=== PATIENT | male | born 1955 | race Caucasian/White ===

== ENCOUNTER 2020-10-05 08:20 | Day surgery (SDC) | payer BC ==
[~2020-10-05 08:20] MED LIST: Lactated Ringers 1,000 ML IV SCH; Lidocaine 2% 5 ML SDV ONE; Midazolam 1 MG/ML 2 ML SDV ONE; Propofol 200 MG/20 ML SDV ONE; fentaNYL 100 MCG/2 ML SDV ONE
--- NOTE | 2020-10-05 08:47 | PCM.PREANE ---
Preanesthetic Assessment - Anesthesia/Transfusion/Family Hx Anesthesia History: Prior Anesthesia Without Reaction Family History of Anesthesia Reaction: No Transfusion History: No Prior Transfusion(s) Intubation History: Unknown - Review of Systems General: No Symptoms Pulmonary: No Symptoms Cardiovascular: No Symptoms Gastrointestinal: Other (h/o multiple polyps) Neurological: No Symptoms Other: Reports: None - Physical Assessment Vital Signs: Last Vital Signs Temp 36.3 C 10/05/20 08:26 Pulse 64 10/05/20 08:26 Resp 16 10/05/20 08:26 BP 138/94 H 10/05/20 08:26 Pulse Ox 96 10/05/20 08:26 Height: 6 ft Weight: 105.687 kg ASA Class: 3 Mental Status: Alert & Oriented x3 Airway Class: Mallampati = 3 Dentition: Reports: Partial (upper (removable)) Thyro-Mental Finger Breadths: 3 Mouth Opening Finger Breadths: 1 (tiny mouth) ROM/Head Extension: Limited/Partial Lungs: Clear to Auscultation, Normal Respiratory Effort Cardiovascular: Regular Rate, Regular Rhythm - Lab Values: Laboratory Last Values SARS-CoV-2 RNA (PADDY) NEGATIVE (NEGATIVE) 10/05/20 07:20 - Allergies Allergies/Adverse Reactions: Allergies Allergy/AdvReac Type Severity Reaction Status Date / Time animal dander Allergy swelling, Verified 10/01/20 11:52 SOB - Blood Blood Available: No - Anesthesia Plan Pre-Op Medication Ordered: None - Acknowledgements Anesthesia Type Planned: MAC Pt an Appropriate Candidate for the Planned Anesthesia: Yes Alternatives and Risks of Anesthesia Discussed w Pt/Guardian: Yes Pt/Guardian Understands and Agrees with Anesthesia Plan: Yes PreAnesthesia Questionnaire HEENT History: Reports: Hard of Hearing, Other (See Below) Other HEENT History: uses reading glasses, has bilateral hearing aides, has upper removable partial denture Cardiovascular History: Reports: High Cholesterol, Hypertension Respiratory History: Reports: Sleep Apnea Other Respiratory History: uses CPAP every night Gastrointestinal History: Reports: Colon Polyp (14 polyps during colonoscopy in ), Diverticulosis, Other (See Below) Other Gastrointestinal History: occasional heartburn Genitourinary History: Reports: BPH Neurological History: Reports: Neuropathy, Peripheral Endocrine/Metabolic History: Reports: Obesity/BMI 30+ (BMI 31.6) Dermatologic History: Reports: Other (See Below) Other Dermatologic History: dry spots on hands - Past Surgical History Head Surgeries/Procedures: Reports: None HEENT Surgical History: Reports: Oral Surgery Other HEENT Surgeries/Procedures: has 1 dental implant GI Surgical History: Reports: Colonoscopy, Hernia, Inguinal Male Surgical History: Reports: Vasectomy - SUBSTANCE USE Tobacco Use Status *Q: Former Tobacco User (quit in -) Tobacco Use Within Last Twelve Months: No Recreational Drug Use History: No - HOME MEDS Home Medications: Home Meds A/C/E/Zinc Ox/Cupric Ox/Lutein [[employer] Tablet] 1 tab PO DAILY 07/29/18 [History] Cyanocobalamin (Vitamin B12) [Vitamin B12] 500 mcg PO DAILY 07/29/18 [History] Metoprolol Succinate 50 mg PO BID 07/29/18 [History] atorvaSTATin Calcium [Atorvastatin Calcium] 40 mg PO DAILY 07/29/18 [History] - CURRENT (IN HOUSE) MEDS Current Meds: Current Medications Lactated Ringer's (Ringers, Lactated) 1,000 mls @ 125 mls/hr IV ASDIRECTED FERNANDEZ Discontinued Medications Fentanyl (Sublimaze) Confirm Administered Dose 100 mcg .ROUTE .STK-MED ONE Stop: 10/05/20 07:21 Lidocaine (Xylocaine-Mpf 2%) Confirm Administered Dose 5 ml .ROUTE .STK-MED ONE Stop: 10/05/20 07:32 Midazolam HCl (Versed 1 Mg/Ml) Confirm Administered Dose 2 mg .ROUTE .STK-MED ONE Stop: 10/05/20 07:21 Propofol (Diprivan 20 Ml) Confirm Administered Dose 400 mg .ROUTE .STK-MED ONE Stop: 10/05/20 07:21
[2020-10-05] MEDS ORDERED: Propofol 200 MG/20 ML SDV ONE ×2 (10:07→10:17)
--- NOTE | 2020-10-05 10:25 | PCM.OPNOTE ---
- General Post-Op/Procedure Note Date of Surgery/Procedure: 10/05/20 Operative Procedure(s): Colonoscopy with multiple cold polypectomies from the ascending colon, transverse colon, splenic flexure, descending colon, sigmoid colon and rectum. Pre Op Diagnosis: Personal history of colon polyps. Sigmoid diverticulosis. Post-Op Diagnosis: Ascending colon, transverse colon, splenic flexure, descending colon, sigmoid and rectal polyps. Mild sigmoid diverticulosis. Anesthesia Technique: MAC (ASA III) Primary Surgeon: Dontrell Holland Unitizer: Armando Robins Condition: Good Free Text/Narrative:: DICTATION [id number] CPT CODE 21501
[2020-10-05] MEDS ORDERED: Lactated Ringers 1,000 ML IV SCH (10:30)
--- NOTE | 2020-10-05 10:57 | PCM.POSTAN ---
POST ANESTHESIA ASSESSMENT - MENTAL STATUS Mental Status: Alert, Oriented - VITAL SIGNS Vital Signs: Last Vital Signs Temp 36.5 C 10/05/20 10:46 Pulse 54 L 10/05/20 10:46 Resp 16 10/05/20 10:46 BP 122/59 L 10/05/20 10:46 Pulse Ox 96 10/05/20 10:46 - RESPIRATORY Respiratory Status: Respiratory Rate WNL, Airway Patent, O2 Saturation Stable - CARDIOVASCULAR CV Status: Pulse Rate WNL, Blood Pressure Stable - GASTROINTESTINAL GI Status: No Symptoms - PAIN Pain Score: 0 - POST OP HYDRATION Hydration Status: Adequate & Stable - OBSERVATIONS Free Text/Narrative:: No anesthesia problems
--- NOTE | 2020-10-05 11:01 | PCM48HPAN ---
Post Anesthesia Note - EVALUATION WITHIN 48HRS OF ANESTHETIC Vital Signs in Normal Range: Yes Patient Participated in Evaluation: Yes Respiratory Function Stable: Yes Airway Patent: Yes Cardiovascular Function Stable: Yes Hydration Status Stable: Yes Pain Control Satisfactory: Yes Nausea and Vomiting Control Satisfactory: Yes Mental Status Recovered: Yes Vital Signs: Last Vital Signs Temp 36.5 C 10/05/20 10:46 Pulse 54 L 10/05/20 10:46 Resp 16 10/05/20 10:46 BP 122/59 L 10/05/20 10:46 Pulse Ox 96 10/05/20 10:46 - COMMENTS/OBSERVATIONS Free Text/Narrative:: No anesthesia problems
--- NOTE | 2020-10-05 12:17 | OR ---
SURGEON: Dontrell Holland M.D. DATE OF PROCEDURE: 10/05/2020 OPERATION PERFORMED: Colonoscopy with multiple polypectomies using the cold biopsy forceps. Polyps were removed from the ascending colon, transverse colon, splenic flexure, descending colon, sigmoid colon, and rectum. DESIGN STUDIO CONSULTANT: Javier Robins, PGY2, General Surgery resident. ANESTHESIA: MAC. ASA CLASSIFICATION: III. DESCRIPTION OF PROCEDURE: The patient was taken to the endoscopy room, positioned on the endoscopy table in the left lateral decubitus position. Time-out was called for appropriate identification of the patient and procedure. Monitored anesthesia care was provided. The colonoscope was inserted into the rectum and advanced with minimal difficulty to the cecum. The cecum was identified by internal landmarks and external pressure. The colonoscope was retroflexed in the cecum to visualize the ascending colon from below, then straightened and slowly withdrawn. Immediately, we were met with several small polyps in the ascending colon. These were able to be removed with the cold biopsy forceps. As the procedure progressed, multiple other polyps were encountered, many in the same areas within the colon and sent as single pathologic specimen. The prep was excellent. No large polyps were encountered. All polyps that were encountered were removed, like I said, with the cold biopsy forceps. The cecum, ascending colon, hepatic flexure, transverse colon, splenic flexure, descending colon, sigmoid colon, and rectum were very well visualized. No tumors were identified. No angiodysplastic changes were seen in the lower gastrointestinal tract. A few scattered diverticula were noted in the sigmoid colon, although our attention was more focused on the number of polyps this gentleman had. No polyps required snare removal. Once the colonoscope was withdrawn to the rectum, it was retroflexed to visualize the anal orifice from above. No tumors or polyps were seen in the retroflexed position. When the colonoscope was straightened, one small polyp was seen in the rectum and this was again removed with the cold biopsy forceps. The patient tolerated the procedure well. He was subsequently taken to recovery room in stable condition. PRATIMA / HARI /[id number] COLTEN
== END 2020-10-05 11:05 | disposition home or self-care (01) ==
LOC: MW.SDS 08:20
PROVIDERS: ATTEND Surgery
DX: D12.3 Benign neoplasm of transverse colon (principal); D12.2 Benign neoplasm of ascending colon; D12.4 Benign neoplasm of descending colon; D12.5 Benign neoplasm of sigmoid colon; D12.8 Benign neoplasm of rectum; K57.30 Diverticulosis of large intestine without perforation or abscess without bleeding; I10 Essential (primary) hypertension; E78.00 Pure hypercholesterolemia, unspecified; K40.90 Unilateral inguinal hernia, without obstruction or gangrene, not specified as recurrent; N52.9 Male erectile dysfunction, unspecified; G62.9 Polyneuropathy, unspecified; G47.30 Sleep apnea, unspecified; E66.9 Obesity, unspecified; Z01.812 Encounter for preprocedural laboratory examination; Z20.822 Contact with and (suspected) exposure to COVID-19; Z79.899 Other long term (current) drug therapy; Z98.890 Other specified postprocedural states; Z80.0 Family history of malignant neoplasm of digestive organs; Z87.891 Personal history of nicotine dependence; Z68.31 Body mass index [BMI] 31.0-31.9, adult
CPT/HCPCS: 00812; 88305; J2250; J2704; J3010; J7120; U0002